=== PATIENT | female | born 1980 | race Caucasian/White ===

== ENCOUNTER 2017-12-10 18:49 | Emergency (ER) | payer OTHER ==
[2017-12-10 18:55] VITALS: BP 132/72; PULSE 89; RESP 16; TEMP 98.4
[2017-12-10] MEDS ORDERED: DIPH,PERTUS(ACELL)TETVAC-LF 0.5 ML VIAL IM ONE (19:05)
--- NOTE | 2017-12-10 19:26 | ED ---
Wound/Laceration HPI - General Chief Complaint: Wound/Laceration Stated Complaint: [facility] - LEFT THUMB LAC Time Seen by Provider: 12/10/17 19:00 Source: patient, RN notes reviewed Mode of arrival: ambulatory Limitations: no limitations - History of Present Illness Initial Comments: This is a 37-year-old female who presents to the emergency department with chief complaint of work-related left thumb laceration. Patient states that at 5 PM this evening she was opening a can at work. She states that she lacerated the tip of her left thumb on the can. She denies any other injuries or trauma. She states that she is unsure if she is up-to-date with her tetanus vaccination. Denies fever, chills, chest pain, shortness of breath, abdominal pain, nausea or vomiting, constipation or diarrhea, dysuria or hematuria, numbness or tingling, headache or vision changes. - Related Data Home Medications Medication Instructions Recorded Confirmed Albuterol Inhaler [Ventolin 2 puff INHALATION Q6HR PRN 11/03/13 12/10/17 Inhaler] EPINEPHrine (Auto Inject) [Epipen] 0.3 mg IM ONCE PRN 11/03/13 12/10/17 Allergies Allergy/AdvReac Type Severity Reaction Status Date / Time bee venom protein (honey bee) AdvReac Anaphylaxis Verified 12/10/17 18:55 Review of Systems ROS Statement: Those systems with pertinent positive or pertinent negative responses have been documented in the HPI. ROS Other: All systems not noted in ROS Statement are negative. Past Medical History Past Medical History: Asthma Additional Past Medical History / Comment(s): asthma, allergies History of Any Multi-Drug Resistant Organisms: None Reported, MRSA Date of last positivie culture/infection: 2008 MDRO Source:: left leg, stomach Past Surgical History: Tonsillectomy Additional Past Surgical History / Comment(s): ganglion cyst removed Past Psychological History: No Psychological Hx Reported Smoking Status: Current every day smoker General Exam - General Exam Comments Initial Comments: General: Awake and alert, well-developed; in no apparent distress. HEENT: Head atraumatic, normocephalic. Pupils are equal, round and reactive to light. Extraocular movements intact. Oropharynx moist without erythema or exudate. Neck: Supple. Normal ROM. Cardiovascular: Regular rate and rhythm. No murmurs, rubs or gallops. Chest symmetrical. Respiratory: Lungs clear to auscultation bilaterally. No wheezes, rales or rhonchi. Normal respiratory effort with no use of accessory muscles. Musculoskeletal: Normal ROM, no tenderness bilateral upper and lower extremities. Sensation is intact. Radial pulses are 2+ equal and palpable bilaterally. Skin: [place], warm and dry. Approximately 0.5 cm in length "L-shaped" superficial laceration to the distal tip of the left thumb. Bleeding is controlled. Neurological: Alert and oriented x3. CN II-XII grossly intact. Speech is fluent and answers are appropriate. No focal neuro deficits. Psychiatric: Normal mood and affect. No overt signs of depression or anxiety noted. Limitations: no limitations Course Vital Signs 12/10/17 18:54 Temperature 98.4 F Pulse Rate 89 Respiratory 16 Rate Blood Pressure 132/72 O2 Sat by Pulse 98 Oximetry Medical Decision Making - Medical Decision Making This is a 37-year-old female who presents to the emergency department with chief complaint of left thumb laceration. Patient lacerated the tip of her left thumb on the edge of a metal can while opening it. She sustained a superficial laceration approximately 0.5 cm in length. She is neurovascularly intact and has normal range of motion of the digit. Wound was extensively cleansed. Exofin glue was applied and patient tolerated well without complication. Recommended allowing glue to fall off on its own. An x-ray of the digit was obtained and revealed no acute abnormalities. Patient's vital signs are stable and she is in acute distress. She will be discharged home at this time. All questions answered. - Radiology Data Radiology results: report reviewed, image reviewed X-ray left thumb impression: Negative left thumb exam. Disposition Clinical Impression: Finger laceration Disposition: HOME SELF-CARE Condition: Good Instructions: Finger Laceration (ED), Skin Adhesive Care (ED) Additional Instructions: Please allow the glue to fall off on its own. Please follow up with primary care provider within 1-2 days. Return to emergency department if symptoms should worsen or any concerns arise. Is patient prescribed a controlled substance at d/c from ED?: No Referrals: Nasra Vela MD [Primary Care Provider] - 1-2 days Time of Disposition: 19:45
[2017-12-10] MEDS ORDERED: TOPICAL SKIN ADHESIVE 1 EACH AMP TOPICAL ONE (19:27)
--- NOTE | 2017-12-10 19:37 | XR ---
EXAMINATION TYPE: XR finger LT DATE OF EXAM: 12/10/2017 COMPARISON: NONE HISTORY: Laceration TECHNIQUE: 3 views FINDINGS: I see no fracture nor dislocation. Joint spaces are normal. There are no erosions. IMPRESSION: Negative left thumb exam.
== END 2017-12-10 19:51 | disposition home or self-care (01) ==
LOC: EC 18:49
DX: S61.012A Laceration without foreign body of left thumb without damage to nail, initial encounter (principal); J45.909 Unspecified asthma, uncomplicated; F17.200 Nicotine dependence, unspecified, uncomplicated; Z86.14 Personal history of Methicillin resistant Staphylococcus aureus infection; Z91.030 Bee allergy status; Z23 Encounter for immunization; W26.8XXA Contact with other sharp object(s), not elsewhere classified, initial encounter; Y92.69 Other specified industrial and construction area as the place of occurrence of the external cause; Y93.89 Activity, other specified; Y99.0 Civilian activity done for income or pay
CPT/HCPCS: 12001; 90471; 90715; 99283

== ENCOUNTER 2018-01-18 20:11 | Emergency (ER) | payer OTHER ==
[2018-01-18 20:40] VITALS: BP 125/77; PULSE 78; RESP 18; TEMP 98.4
--- NOTE | 2018-01-18 22:21 | ED ---
General Adult HPI - General Chief complaint: Skin/Abscess/Foreign Body Stated complaint: [facility]-bitten by patient Time Seen by Provider: 01/18/18 21:52 Source: patient, RN notes reviewed Mode of arrival: ambulatory Limitations: no limitations - History of Present Illness Initial comments: 37-year-old female presents to the emergency room for a chief complaint of human bite to the left upper arm. 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 Patient states her tetanus is up- to-date as of this year because she cut herself this urinated 1. Patient denies any pain in the arm at this time. Patient denies any other injuries.Patient has no other complaints at this time including shortness of breath, chest pain, abdominal pain, nausea or vomiting, headache, or visual changes. - Related Data Home Medications Medication Instructions Recorded Confirmed Albuterol Inhaler [Ventolin 2 puff INHALATION Q6HR PRN 11/03/01/18/18 Inhaler] Fluticasone Nasal [place] [Flonase 1 spray EA NOSTRIL DAILY PRN 01/18/18 01/18/18 Nasal [place]] Ibuprofen [Motrin Ib] 800 mg PO TID PRN 01/18/18 01/18/18 Loratadine [Claritin] 10 mg PO DAILY 01/18/18 01/18/18 Previous Rx's Medication Instructions Recorded Amoxicillin/Potassium Clav 1 tab PO Q12HR #20 tab 01/18/18 [Augmentin 875-125 Tablet] Allergies Allergy/AdvReac Type Severity Reaction Status Date / Time bee venom protein (honey bee) AdvReac Anaphylaxis Verified 01/18/18 22:07 Review of Systems ROS Statement: Those systems with pertinent positive or pertinent negative responses have been documented in the HPI. ROS Other: All systems not noted in ROS Statement are negative. Past Medical History Past Medical History: Asthma Additional Past Medical History / Comment(s): asthma, allergies History of Any Multi-Drug Resistant Organisms: None Reported, MRSA Date of last positivie culture/infection: 2008 MDRO Source:: left leg, stomach Past Surgical History: Tonsillectomy Additional Past Surgical History / Comment(s): ganglion cyst removed Past Psychological History: No Psychological Hx Reported Smoking Status: Current every day smoker Past Alcohol Use History: None Reported Past Drug Use History: None Reported General Exam Limitations: no limitations General appearance: alert, in no apparent distress Head exam: Present: atraumatic, normocephalic, normal inspection Eye exam: Present: normal appearance. Absent: scleral icterus, conjunctival injection ENT exam: Present: normal exam, mucous membranes moist Neck exam: Present: normal inspection, full ROM. Absent: tenderness, meningismus, lymphadenopathy Respiratory exam: Present: normal lung sounds bilaterally. Absent: respiratory distress, wheezes, rales, rhonchi, stridor Cardiovascular Exam: Present: regular rate, normal rhythm, normal heart sounds. Absent: systolic murmur, diastolic murmur, rubs, gallop, clicks Extremities exam: Present: full ROM (Full range of motion of the left upper extremity including the shoulder, elbow, and hand), tenderness (Tenderness over the bite area. No tenderness elsewhere in the left upper extremity), normal capillary refill (Capillary refill less than 2 seconds and radial pulse 2+ in the left upper extremity), other (Patient has a 2 cm x 2 cm area of abrasions with surrounding ecchymosis. No lacerations to the skin. No spreading redness or streaking redness. No drainage.). Absent: joint swelling Course Vital Signs 01/18/18 20:37 Temperature 98.4 F Pulse Rate 78 Respiratory 18 Rate Blood Pressure 125/77 O2 Sat by Pulse 98 Oximetry Medical Decision Making - Medical Decision Making 37-year-old female presents to the emergency department for a chief complaint of human bites. There is a 2 cm x 2 cm area of abrasion and ecchymosis noted to the left upper lateral arm. Full range of motion and neurovascular intact in left upper extremity. Right now, no spreading redness streaking redness or drainage. Discussed the patient high risk of infection. Wound was cleaned thoroughly by myself with soap and water. Bacitracin was applied and Band-Aid was applied over that. Patient was given Augmentin. She was educated to have a wound recheck in one to 2 days by primary care. She will come back to the emergency Department if she notices any signs of infection which were discussed thoroughly with her. Disposition Clinical Impression: Human bite Disposition: HOME SELF-CARE Condition: Good Instructions: Human Bite (ED) Additional Instructions: Please take antibiotic as directed. Please keep the area clean. Watch for signs of infection such as spreading redness, streaking redness, drainage or fever and return if these or any other worsening symptoms occur. Follow-up with primary care in 1-2 days. Prescriptions: Amoxicillin/Potassium Clav [Augmentin 875-125 Tablet] 1 tab PO Q12HR #20 tab Is patient prescribed a controlled substance at d/c from ED?: No Referrals: Nasra Vela MD [Primary Care Provider] - 1-2 days Time of Disposition: 22:12
== END 2018-01-18 22:40 | disposition home or self-care (01) ==
LOC: EC 20:11
DX: S40.022A Contusion of left upper arm, initial encounter (principal); J45.909 Unspecified asthma, uncomplicated; F17.200 Nicotine dependence, unspecified, uncomplicated; Z86.14 Personal history of Methicillin resistant Staphylococcus aureus infection; Z79.899 Other long term (current) drug therapy; Z91.030 Bee allergy status; W50.3XXA Accidental bite by another person, initial encounter; Y92.009 Unspecified place in unspecified non-institutional (private) residence as the place of occurrence of the external cause
CPT/HCPCS: 99283

== ENCOUNTER 2020-03-11 14:12 | Emergency (ER) | payer OTHER ==
[2020-03-11 14:18] VITALS: BP 126/59; PULSE 120; RESP 18; TEMP 98.6
--- NOTE | 2020-03-11 14:37 | ED ---
General Adult HPI - General Chief complaint: Extremity Injury, Upper Stated complaint: [facility] ARM INJURY Time Seen by Provider: 03/11/20 14:22 Source: patient, RN notes reviewed Mode of arrival: ambulatory Limitations: no limitations - History of Present Illness Initial comments: 39-year-old female with a past medical history of asthma presents to the [facility] for chief complaint of right elbow pain. 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 Patient reports he started to slip and she hit her elbow against something behind her. States it is bruised. States this happened today. Patient reports it is minimally painful to move. She denies any other injuries.Patient has no other complaints at this time including shortness of breath, chest pain, abdominal pain, nausea or vomiting, headache, or visual changes. - Related Data Home Medications Medication Instructions Recorded Confirmed Albuterol Inhaler (Mhu) [Ventolin 2 puff INHALATION Q6HR PRN 11/03/01/18/18 Inhaler] Fluticasone Nasal [place] [Flonase 1 spray EA NOSTRIL DAILY PRN 01/18/18 01/18/18 Nasal [place]] Ibuprofen [Motrin Ib] 800 mg PO TID PRN 01/18/18 01/18/18 Loratadine [Claritin] 10 mg PO DAILY 01/18/18 01/18/18 Previous Rx's Medication Instructions Recorded Amoxicillin/Potassium Clav 1 tab PO Q12HR #20 tab 01/18/18 [Augmentin 875-125 Tablet] Allergies Allergy/AdvReac Type Severity Reaction Status Date / Time bee venom protein (honey bee) AdvReac Anaphylaxis Verified 03/11/20 14:18 Review of Systems ROS Statement: Those systems with pertinent positive or pertinent negative responses have been documented in the HPI. ROS Other: All systems not noted in ROS Statement are negative. Past Medical History Past Medical History: Asthma Additional Past Medical History / Comment(s): asthma, allergies History of Any Multi-Drug Resistant Organisms: None Reported, MRSA Date of last positivie culture/infection: 2008 MDRO Source:: left leg, stomach Past Surgical History: Tonsillectomy Additional Past Surgical History / Comment(s): ganglion cyst removed, Past Psychological History: Anxiety, Depression Smoking Status: Current every day smoker Past Alcohol Use History: None Reported Past Drug Use History: None Reported General Exam Limitations: no limitations General appearance: alert, in no apparent distress Head exam: Present: atraumatic, normocephalic, normal inspection Eye exam: Present: normal appearance, PERRL, EOMI. Absent: scleral icterus, conjunctival injection, periorbital swelling ENT exam: Present: normal exam, mucous membranes moist Neck exam: Present: normal inspection, full ROM. Absent: tenderness, meningismus, lymphadenopathy Respiratory exam: Present: normal lung sounds bilaterally. Absent: respiratory distress, wheezes, rales, rhonchi, stridor Cardiovascular Exam: Present: regular rate, normal rhythm, normal heart sounds. Absent: systolic murmur, diastolic murmur, rubs, gallop, clicks GI/Abdominal exam: Present: soft, normal bowel sounds. Absent: distended, tenderness, guarding, rebound, rigid Extremities exam: Present: full ROM (Patient has full range of motion of the right elbow. Full range motion of the right shoulder and wrist.), tenderness (Mild tenderness to the distal posterior humerus.), normal capillary refill (Capillary refill less than 2 seconds, radial pulse 2+ right upper extremity.), other ([employer] strength 5 out of 5. Sensation intact.). Absent: pedal edema, joint swelling, calf tenderness Course Vital Signs 03/11/20 14:15 Temperature 98.6 F Pulse Rate 120 H Respiratory 18 Rate Blood Pressure 126/59 O2 Sat by Pulse 99 Oximetry Medical Decision Making - Medical Decision Making Vital stable. Patient is tachycardic in the emergency room. Patient reports she has very bad anxiety and is very anxious being in the emergency room. States she is seeing her doctor for this as well. Tachycardia is likely secondary to anxiety. Heart rate is regular on auscultation. Exam otherwise as documented. It for him to motion of the right elbow. Small contusion noted to the posterior elbow. X-ray shows a normal right elbow exam. Patient be discharged home. Discussed care instructions. Discussed return parameters. Discussed following up with her doctor. I discussed this case with attending Dr. Hector who agrees with this assessment and treatment plan. Disposition Clinical Impression: Contusion, Elbow pain Disposition: HOME SELF-CARE Condition: Good Instructions (If sedation given, give patient instructions): Contusion in Adults (ED) Additional Instructions: Please take Motrin and Tylenol for pain. Rest ice and elevate the right arm. Follow-up with your doctor in one to 2 days. Return to the emergency room for any worsening symptoms. Is patient prescribed a controlled substance at d/c from ED?: No Referrals: Zack Altman MD [Primary Care Provider] - 1-2 days Time of Disposition: 15:04
--- NOTE | 2020-03-11 14:52 | XR ---
Right elbow HISTORY: Right elbow pain 3 views of the right elbow Bone mineralization, joint spaces and alignment are maintained. There is no evident joint effusion. IMPRESSION: Normal right elbow.
== END 2020-03-11 15:09 | disposition home or self-care (01) ==
LOC: EC 14:12
DX: S50.01XA Contusion of right elbow, initial encounter (principal); J45.909 Unspecified asthma, uncomplicated; F41.9 Anxiety disorder, unspecified; R00.0 Tachycardia, unspecified; T78.40XA Allergy, unspecified, initial encounter; F17.200 Nicotine dependence, unspecified, uncomplicated; Z79.899 Other long term (current) drug therapy; Z91.030 Bee allergy status; Z86.14 Personal history of Methicillin resistant Staphylococcus aureus infection; W22.8XXA Striking against or struck by other objects, initial encounter; Y92.69 Other specified industrial and construction area as the place of occurrence of the external cause; Y99.0 Civilian activity done for income or pay
CPT/HCPCS: 99283